=== PATIENT | female | born 1975 | race Hispanic/Latino ===

== ENCOUNTER 2024-12-31 21:27 | Emergency (ER) | payer OTHER ==
[~2024-12-31] VITALS: Ht 157.5 cm; Wt 73.9 kg
[2024-12-31 22:05] VITALS: PULSE 77; RESP 18; TEMP 98.9
[2024-12-31] MEDS: IBUPROFEN 600 MG TAB PO STA (22:48)
[2024-12-31 23:10] VITALS: BP 120/70; PULSE 77; RESP 18; TEMP 98.9; O2SAT 94
== END 2024-12-31 23:10 | disposition home or self-care (01) ==
LOC: FSED 22:11
DX: R05.9 Cough, unspecified (principal); J06.9 Acute upper respiratory infection, unspecified; R09.89 Other specified symptoms and signs involving the circulatory and respiratory systems; R51.9 Headache, unspecified; Z11.52 Encounter for screening for COVID-19
CPT/HCPCS: 0223U; 83518; 87400; 87420; 99282